=== PATIENT | male | born 1970 | race Caucasian/White ===

== ENCOUNTER 2022-01-21 20:52 | Emergency (ER) | payer OTHER ==
[2022-01-21] MEDS ORDERED: PANTOPRAZOLE SODIUM 40 MG VIAL IVPUSH ONE (21:14)
[2022-01-21] MEDS ORDERED: morphine CARPU-JECT 4 MG/1 ML DISP.SYRIN IVPUSH ONE (21:14)
[2022-01-21] MEDS ORDERED: SODIUM CHLORIDE 1,000 ML IV ONE (21:14)
[2022-01-21] MEDS ORDERED: methylPREDNISolone NA SUCC 125 MG/2 ML VIAL IVPUSH ONE (21:18)
[2022-01-21] MEDS ORDERED: morphine SULFATE 4 MG/ML VIAL ONE (21:24)
[2022-01-21] MEDS ORDERED: PANTOPRAZOLE SODIUM 40 MG VIAL ONE (21:24)
[2022-01-21] MEDS ORDERED: methylPREDNISolone NA SUCC 125 MG/2 ML VIAL ONE (21:24)
[2022-01-21 21:28] VITALS: BP 118/78; PULSE 93; RESP 18; TEMP 98.8; BMI 23.9
[2022-01-21 21:32] LABS: HEMATOCRIT 44.9 % (35.4-49); HEMOGLOBIN 15.7 G/dL (11.7-16.9); MCH 31.3 pg (25.7-33.7); MCHC 34.9 g/dl (32.0-35.9); MEAN CELL VOLUME 89.7 fl (80-96); MEAN PLT VOLUME 6.8 fl (7.5-11.1); RDW 14.3 % (11.9-15.9); WHITE BLOOD COUNT 12.4 10^3/uL (4.0-10.8)
[2022-01-21] MEDS ORDERED: ONDANSETRON 4 MG/2 ML VIAL IVPB ONE (21:32)
[2022-01-21] MEDS ORDERED: ONDANSETRON 4 MG/2 ML VIAL ONE (21:34)
[2022-01-21 21:45] LABS: CALCIUM 9.5 mg/dl (8.5-10); CREATININE 1.1 mg/dl (0.55-1.3); TOT PROT 7.1 g/dl (6.4-8.2)
[2022-01-21] MEDS ORDERED: DEXTROSE 5%-NORMAL SALINE 500 ML IV ONE (22:01)
== END 2022-01-22 00:32 | disposition home or self-care (01) ==
LOC: FER 20:52
PROC: 3E033GC Introduction of Other Therapeutic Substance into Peripheral Vein, Percutaneous Approach (ICD-10-PCS; principal; 2022-01-21)
DX: R10.30 Lower abdominal pain, unspecified (principal)
CPT/HCPCS: 0241U-QW; 36415; 74177-TC; 80053; 83605; 85027; 99285-25; Q9967

== ENCOUNTER 2022-11-09 14:54 | Observation (INO) | payer OTHER ==
[2022-11-09] MEDS ORDERED: MAG HYDROX/AL HYDROX/SIMETH -MYLANTA- ORAL SUSPENSION PO ONE (15:11)
[2022-11-09] MEDS ORDERED: ACETAMINOPHEN 1000 MG/100 ML BAG IVPB ONE (15:11)
[2022-11-09] MEDS ORDERED: SUCRALFATE 1 GM TABLET (FP) PO ONE (15:11)
[2022-11-09] MEDS ORDERED: LACTATED RINGERS SOLUTION 1000 ML INFUS.BAG IV ONE (15:11)
[2022-11-09] MEDS ORDERED: FAMOTIDINE 20 MG/50 ML IVPB 20 MG/50 ML MG IVPB ONE ×2 (15:11→15:13)
[2022-11-09] MEDS ORDERED: ACETAMINOPHEN INJECTION 100 ML IVPB ONE (15:13)
[2022-11-09] MEDS ORDERED: SUCRALFATE 1 GM/10 ML UNIT DOSE CUPS ONE (15:13)
[2022-11-09] MEDS ORDERED: MAG HYDROX/AL HYDROX/SIMETH 30 ML UNIT-DOSE CUP ONE (15:14)
[2022-11-09 15:30] LABS: HEMATOCRIT 43.3 % (35.4-49); HEMOGLOBIN 14.2 G/dL (11.7-16.9); MCH 30.1 pg (25.7-33.7); MCHC 32.8 g/dl (32.0-35.9); MEAN CELL VOLUME 91.8 fl (80-96); MEAN PLT VOLUME 6.9 fl (7.5-11.1); PLATELET COUNT 301.9 10^3/uL (134-434); RBC 4.72 10^6/uL (4.00-5.60); RDW 14.8 % (11.9-15.9); WHITE BLOOD COUNT 6.5 10^3/uL (4.0-10.8)
[2022-11-09 15:46] LABS: ALBUMIN 4.1 g/dl (3.4-5.0); BILIRUBIN,TOTAL 0.3 mg/dl (0.2-1); CALCIUM 9.1 mg/dl (8.5-10.1); SGOT/AST 9.5 U/L (15-37); SGPT/ALT 13.5 U/L (7-52); TOT PROT 6.1 g/dl (6.4-8.2)
[2022-11-09 16:00] LABS: INR 1.03 (0.83-1.09); PROTHROMBIN TIME (PATIENT) 11.9 SEC (9.7-13.0)
[2022-11-09 16:03] LABS: ACTIVATED PTT 31.5 SECONDS (25.2-36.5)
[2022-11-09 16:30] LABS: PLATELET ESTIMATE ADEQUATE
[2022-11-09] MEDS ORDERED: morphine CARPU-JECT 4 MG/1 ML DISP.SYRIN IVPUSH ONE (17:28)
[2022-11-09] MEDS ORDERED: PANTOPRAZOLE SODIUM 40 MG VIAL IVPUSH ONE (17:29)
[2022-11-09] MEDS ORDERED: DEXTROSE 5%-NORMAL SALINE 1,000 ML IV SCH (17:30)
[2022-11-09] MEDS ORDERED: morphine SULFATE 4 MG/ML VIAL ONE (17:34)
[2022-11-09] MEDS ORDERED: morphine SULFATE 4 MG/ML VIAL IVPUSH ONE (18:56)
[2022-11-09 21:16] VITALS: BMI 23.0
[2022-11-09] MEDS: ACETAMINOPHEN 1000 MG/100 ML BAG IVPB PRN (22:57)
[2022-11-09] MEDS ORDERED: DICYCLOMINE HCL 10 MG CAPSULE PO PRN (23:08)
[2022-11-10 00:13] VITALS: RESP 18
[2022-11-10] MEDS ORDERED: morphine SULFATE 4 MG/ML VIAL IVPUSH PRN (01:00)
[2022-11-10 06:55] VITALS: PULSE 64
[2022-11-10 09:42] LABS: BLOOD UREA NITROGEN 7.1 mg/dl (7-18); CALCIUM 8.7 mg/dl (8.5-10.1); POTASSIUM 4.1 mmol/L (3.5-5.1)
[2022-11-10] MEDS ORDERED: PANTOPRAZOLE SODIUM 40 MG VIAL IVPUSH SCH (10:00)
[2022-11-10 10:45] LABS: BASO % 0.1 % (0-2.0); HEMATOCRIT 40.4 % (35.4-49); HEMOGLOBIN 13.6 GM/dL (11.7-16.9); LYMPH % 23.4 % (8-40); MCH 30.7 pg (25.7-33.7); MCHC 33.6 g/dl (32.0-35.9); MEAN CELL VOLUME 91.2 fl (80-96); MEAN PLT VOLUME 7.3 fl (7.5-11.1); MONO % 6.7 % (3.8-10.2); NEUT % 67.8 % (42.8-82.8); PLATELET COUNT 330 10^3/uL (134-434); RBC 4.43 M/mm3 (4.00-5.60); RDW 13.3 % (11.9-15.9); WHITE BLOOD COUNT 8.1 K/mm3 (4.0-10.0)
[2022-11-10 11:50] LABS: ERYTHROCYTE SEDIMENTATION RATE 2 mm/hr (0-20)
[2022-11-10 12:57] VITALS: BP 125/90; TEMP 98.4
[2022-11-10] MEDS: ACETAMINOPHEN 1000 MG/100 ML BAG IVPB PRN (13:10)
== END 2022-11-10 15:50 | disposition left against medical advice (07) ==
LOC: FER 14:54 → FM/S 17:51
PROVIDERS: ADMIT Internal Medicine
PROC: 3E0337Z Introduction of Electrolytic and Water Balance Substance into Peripheral Vein, Percutaneous Approach (ICD-10-PCS; principal; 2022-11-09)
PROC: 3E033NZ Introduction of Analgesics, Hypnotics, Sedatives into Peripheral Vein, Percutaneous Approach (ICD-10-PCS; 2022-11-09)
PROC: 3E033GC Introduction of Other Therapeutic Substance into Peripheral Vein, Percutaneous Approach (ICD-10-PCS; 2022-11-09)
DX: K50.90 Crohn's disease, unspecified, without complications (principal); R10.30 Lower abdominal pain, unspecified; F90.9 Attention-deficit hyperactivity disorder, unspecified type; R00.1 Bradycardia, unspecified
CPT/HCPCS: 0241U-QW; 36415; 74177-TC; 80048; 80053; 81003; 81015; 83690; 84484; 85025; 85610; 85651; 85730; 86140; 87086; 93005; 96361; 96365; 96375; 96376; 99285-25; G0378; Q9967

== ENCOUNTER 2023-05-03 12:20 | Emergency (ER) | payer OTHER ==
[2023-05-03 12:50] VITALS: BP 96/63; PULSE 75; RESP 16; TEMP 98; BMI 22.7
[2023-05-03] MEDS ORDERED: LIDOCAINE 5% TOPICAL PATCH ONE (14:38)
[2023-05-03] MEDS ORDERED: IBUPROFEN 600 MG TABLET (FP) PO ONE (14:38)
[2023-05-03] MEDS: IBUPROFEN 600 MG TABLET (FP) PO ONE (14:40)
[2023-05-03] MEDS: LIDOCAINE 5% TOPICAL PATCH TP ONE (14:43)
[2023-05-03] MEDS ORDERED: LIDOCAINE PATCH REMOVAL MC ONE (22:00)
== END 2023-05-03 15:18 | disposition home or self-care (01) ==
LOC: FER 12:20
DX: M54.2 Cervicalgia (principal); R20.2 Paresthesia of skin
CPT/HCPCS: 99283-25

== ENCOUNTER 2023-09-04 22:11 | Emergency (ER) | payer OTHER ==
[2023-09-04 22:18] VITALS: BP 137/91; PULSE 65; RESP 18; TEMP 98.6; BMI 22.7
[2023-09-04] MEDS ORDERED: ONDANSETRON 4 MG/2 ML VIAL ONE (22:43)
[2023-09-04] MEDS ORDERED: morphine SULFATE 4 MG/ML VIAL ONE (22:43)
[2023-09-04] MEDS: ONDANSETRON 4 MG/2 ML VIAL IVPUSH ONE (22:55)
[2023-09-04] MEDS: SODIUM CHLORIDE 1,000 ML IV STA (22:55)
[2023-09-04] MEDS: morphine CARPU-JECT 4 MG/1 ML DISP.SYRIN IVPUSH ONE (22:55)
[2023-09-04] MEDS ORDERED: FAMOTIDINE 20 MG/50 ML IVPB 20 MG/50 ML MG IVPB ONE (23:30)
[2023-09-04] MEDS ORDERED: methylPREDNISolone NA SUCC 125 MG/2 ML VIAL ONE (23:30)
[2023-09-04 23:35] LABS: BASO % 0.1 % (0-2.0); EOS % 0.2 % (0-4.5); HEMATOCRIT 41.8 % (35.4-49); LYMPH % 7.6 % (8-40); MCH 30.9 pg (25.7-33.7); MCHC 33.5 g/dl (32.0-35.9); MEAN CELL VOLUME 92.2 fl (80-96); MEAN PLT VOLUME 7.5 fl (7.5-11.1); MONO % 4.2 % (3.8-10.2); NEUT % 87.9 % (42.8-82.8); PLATELET COUNT 374 10^3/uL (134-434); RBC 4.53 M/mm3 (4.00-5.60); RDW 13.8 % (11.9-15.9); WHITE BLOOD COUNT 16.5 K/mm3 (4.0-10.0)
[2023-09-04] MEDS: FAMOTIDINE 20 MG/50 ML IVPB 20 MG/50 ML MG IVPB ONE (23:37)
[2023-09-04] MEDS: methylPREDNISolone NA SUCC 125 MG/2 ML VIAL IVPB ONE (23:37)
[2023-09-05 00:07] LABS: POTASSIUM 4.3 mmol/L (3.5-5.1)
[2023-09-05 00:09] LABS: CALCIUM 9.6 mg/dL (8.5-10.1)
[2023-09-05 00:10] LABS: BLOOD UREA NITROGEN 16.3 mg/dL (7-18)
[2023-09-05 00:13] LABS: CREATININE 1.1 mg/dL (0.55-1.3)
[2023-09-05 00:14] LABS: TOT PROT 7.5 g/dl (6.4-8.2)
[2023-09-05 00:15] LABS: BILIRUBIN,TOTAL 0.2 mg/dL (0.2-1)
== END 2023-09-05 02:45 | disposition home or self-care (01) ==
LOC: FER 22:11
DX: K50.90 Crohn's disease, unspecified, without complications (principal); R10.84 Generalized abdominal pain; R11.0 Nausea
CPT/HCPCS: 36415; 74177-TC; 80053; 83690; 84484; 85025; 93005; 99285-25; Q9967

== ENCOUNTER 2023-09-05 11:30 | Emergency (ER) | payer OTHER ==
[2023-09-05 12:06] VITALS: BP 136/90; PULSE 57; RESP 18; TEMP 97.7; BMI 22.7
[2023-09-05] MEDS ORDERED: HALOPERIDOL LACTATE 5 MG/ML ONE (12:14)
[2023-09-05] MEDS ORDERED: ONDANSETRON *ODT* 4 MG TABLET ONE (12:15)
[2023-09-05] MEDS ORDERED: FAMOTIDINE 20 MG/50 ML IVPB 20 MG/50 ML MG IVPB ONE (12:15)
[2023-09-05] MEDS: ONDANSETRON *ODT* 4 MG TABLET SL ONE (12:20)
[2023-09-05] MEDS: HALOPERIDOL LACTATE 5 MG/ML IM ONE (12:25)
[2023-09-05] MEDS: SODIUM CHLORIDE 0.9% 1000 ML INFUS.BAG IV ONE (12:38)
[2023-09-05] MEDS: FAMOTIDINE 20 MG/50 ML IVPB 20 MG/50 ML MG IVPB ONE (12:39)
[2023-09-05 12:43] LABS: HEMATOCRIT 45.1 % (35.4-49); HEMOGLOBIN 14.8 G/dL (11.7-16.9); MCH 30.7 pg (25.7-33.7); MCHC 32.9 g/dl (32.0-35.9); MEAN CELL VOLUME 93.3 fl (80-96); PLATELET COUNT 351.8 10^3/uL (134-434); RBC 4.83 10^6/uL (4.00-5.60); RDW 14.8 % (11.9-15.9); WHITE BLOOD COUNT 16.9 10^3/uL (4.0-10.8)
[2023-09-05 13:18] LABS: ALBUMIN 4.5 g/dl (3.4-5.0); BILIRUBIN,TOTAL 0.3 mg/dl (0.2-1); CALCIUM 10.1 mg/dl (8.5-10.1); POTASSIUM 4.2 mmol/L (3.5-5.1); TOT PROT 6.7 g/dl (6.4-8.2)
[2023-09-05] MEDS ORDERED: methylPREDNISolone NA SUCC 125 MG/2 ML VIAL ONE (14:13)
[2023-09-05] MEDS: methylPREDNISolone NA SUCC 125 MG/2 ML VIAL IVPB ONE (14:18)
== END 2023-09-05 15:44 | disposition home or self-care (01) ==
LOC: FER 11:30
PROC: 3E033GC Introduction of Other Therapeutic Substance into Peripheral Vein, Percutaneous Approach (ICD-10-PCS; principal; 2023-09-05)
PROC: 3E033GC Introduction of Other Therapeutic Substance into Peripheral Vein, Percutaneous Approach (ICD-10-PCS; 2023-09-05)
PROC: 3E023GC Introduction of Other Therapeutic Substance into Muscle, Percutaneous Approach (ICD-10-PCS; 2023-09-05)
DX: K50.10 Crohn's disease of large intestine without complications (principal); R10.9 Unspecified abdominal pain; R11.0 Nausea
CPT/HCPCS: 36415; 80053; 83690; 85025; 99284-25; Q0162